=== PATIENT | female | born 1940 | race Caucasian/White ===

== ENCOUNTER 2021-08-13 10:03 | Outpatient (CLI) | payer MEDICARE, OTHER, SELFPAY ==
--- NOTE | 2021-08-13 10:47 | XR_ITS ---
WS: [id number] SCREENING DEXA SCAN [place] [facility] CLINICAL INFORMATION: ASYMPTOMATIC MENOPAUSAL STATE COMPARISON: FINDINGS: The L1-L4 bone mineral density measures 1.539 g/cm2. This corresponds to a T score score of 3.0 and Z score of 4.0. LEFT forearm bone mineral density measures 0.905. This corresponds to a T score of 0.3 and Z score of 2.9. XR/XR DEXA axial skeleton* [id number] IMPRESSION: Normal bone mineralization.
== END 2021-08-13 10:04 | disposition home or self-care (01) ==
LOC: RAD 10:04
PROVIDERS: Visit Provider Nurse Practitioner Family
DX: Z78.0 Asymptomatic menopausal state (principal)
CPT/HCPCS: 77080

== ENCOUNTER 2021-10-25 19:40 | Emergency (ER) | payer MEDICARE, OTHER, SELFPAY ==
[2021-10-25 20:12] VITALS: BP 199/100; PULSE 76; RESP 16; TEMP 37.2; O2SAT 95; BMI 35.4
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
[2021-10-25 22:52] LABS: Hematocrit 40.3 % (37.0-47.0); Mean Corpuscular HGB Conc 32.3 g/dL (30.0-36.0); Mean Corpuscular Hemoglobin 30.4 pg (28.0-34.0); Mean Corpuscular Volume 94.2 fl (81-99); Mean Platelet Volume 10.5 fL (7.4-10.4); Platelet Count 171 10^3/cmm (130-400); Red Blood Count 4.28 10^6/uL (4.1-5.3); Red Cell Distribution Width 14.5 % (12.1-15.1)
[2021-10-25 23:10] VITALS: BP 145/78; PULSE 85; RESP 18; O2SAT 98
[2021-10-25 23:14] LABS: Alanine Aminotransferase 10 U/L (0-33); Alkaline Phosphatase 70 IU/L (35-105); Anion Gap 14.6 (5-19); Aspartate Amino Transferase 14 U/L (0-32); Blood Urea Nitrogen 14 mg/dL (8-23); Calcium 9.1 mg/dL (8.5-10.5); Carbon Dioxide 27 mmol/L (22-29); Chloride 101 mmol/L (98-107); Globulin 2.5 g/dL (1.3-4.6); Glucose 84 mg/dL (65-115); Osmolality Calculated 288 mOsm/kg (285-295); Potassium 3.6 mmol/L (3.5-5.1); Sodium 139 mmol/L (136-145); Total Bilirubin 0.4 mg/dL (0.15-1.2); Total Protein 6.5 g/dL (6.6-8.7)
[2021-10-25 23:19] LABS: Slide Review Slide Review Perform
[2021-10-25 23:22] LABS: White Blood Count 49.1 10^3/uL (4.0-10.0)
[2021-10-25 23:26] LABS: Absolute Eosinophils 0.4 10^3/cmm (0.0-0.7); Absolute Neutrophil 4.4 10^3/cmm (1.4-6.5); Absolute Segmented Neutrophil 4.4 10/cmm (1.6-7.1); Eosinophils 1 %; Lymphocytes 88 %; Lymphocytes Absolute 43.2 10^3/cmm (1.2-3.4); Pathology Refferal Yes; Platelet Estimate Normal (Normal); Segmented Neutrophils 9 %; Smudge Cells 1+; Total Cells Counted 100 (0-100)
== END 2021-10-25 23:11 | disposition home or self-care (01) ==
PROVIDERS: Emergency Provider Nurse Practitioner Family
DX: L27.1 Localized skin eruption due to drugs and medicaments taken internally (principal); C85.90 Non-Hodgkin lymphoma, unspecified, unspecified site; Z79.899 Other long term (current) drug therapy
CPT/HCPCS: 80053; 80503; 85007; 85025; 87040; 87070; 87075; 87205; 99282

== ENCOUNTER → 2021-10-30 13:06 | Outpatient (BNVA) | payer MEDICARE, OTHER, SELFPAY | PROVIDERS: Visit Provider Emergency Medicine | DX: I96 Gangrene, not elsewhere classified (principal); L97.521 Non-pressure chronic ulcer of other part of left foot limited to breakdown of skin; L97.511 Non-pressure chronic ulcer of other part of right foot limited to breakdown of skin | CPT/HCPCS: 11042; 99203; 99213 ==

== ENCOUNTER → 2021-11-06 10:52 | Outpatient (BNVA) | payer MEDICARE, OTHER, SELFPAY | PROVIDERS: Visit Provider Emergency Medicine | DX: I96 Gangrene, not elsewhere classified (principal); L97.421 Non-pressure chronic ulcer of left heel and midfoot limited to breakdown of skin; L97.511 Non-pressure chronic ulcer of other part of right foot limited to breakdown of skin | CPT/HCPCS: 11042 ==

== ENCOUNTER → 2021-11-13 13:00 | Outpatient (BNVA) | payer MEDICARE, OTHER, SELFPAY | PROVIDERS: Visit Provider Nurse Practitioner Family | DX: Z09 Encounter for follow-up examination after completed treatment for conditions other than malignant neoplasm (principal) | CPT/HCPCS: 99212; 99213 ==

== ENCOUNTER 2022-01-31 09:58 | Outpatient (CLI) | payer MEDICARE, OTHER, SELFPAY ==
--- NOTE | 2022-01-31 10:10 | USCV_ITS ---
Colette Almazan Age: 81 Gender: F : 1940 Exam Date: 01/31/2022 10:26 Ordering Phys: Brielle Dolan DO Technologist: Corby Kapoor Exam Location: [facility] – [place] Indication: HISTORY: PROCEDURES: Bilateral duplex Venous Insufficiency study of the Deep and Superficial systems was carried out according to normal protocol with the patient in supine positon for deep system and dependent position for the superficial system. FINDINGS: All deep veins demonstrated compressibility without evidence of intraluminal thrombus or increased echogenicity. Spectral analysis of Doppler signals demonstrates normal response to compression maneuvers indicating patency without obstruction. Reflux determinations were made with the patient in the dependent position, the weight being on the contralateral leg. Vein measurements and reflux times are listed below were applicable. No notable reflux was seen at this time. CONCLUSIONS No evidence of DVT in the above-mentioned identifiable veins. No significant reflux, either in the deep or superficial veins mentioned above Normal venous dimensions bilaterally Dr Karlee Valle MD [facility] (Electronically Signed) Final Date: 03 February 2022 17:01 S
== END 2022-01-31 09:59 | disposition home or self-care (01) ==
LOC: RAD 09:59
PROVIDERS: PCP Registered Nurse; Visit Provider Emergency Medicine
DX: M79.604 Pain in right leg (principal); M79.605 Pain in left leg; L98.8 Other specified disorders of the skin and subcutaneous tissue
CPT/HCPCS: 93970

== ENCOUNTER 2022-11-19 13:06 | Outpatient (CLI) | payer MEDICARE, OTHER, SELFPAY ==
--- NOTE | 2022-11-19 13:11 | CT_ITS ---
WS: [id number] CT NECK TECHNIQUE: Contrast-enhanced CT of the neck with coronal and sagittal reformatted images. CLINICAL INFORMATION: CHRONIC LYMPHOCYTIC LEUKEMIA COMPARISON: None. DLP: 207.[address] scans at [facility] use at least one of these dose optimization techniques: automated e xposure control; mA and/or kV adjustment per patient size (includes targeted exams where dose is matc hed to clinical indication); or iterative reconstruction. FINDINGS: Paranasal sinuses and mastoid air cells are well aerated. Normal submandibular glands. Normal parotid glands. Diffuse enhancing lobulated soft tissue mass with enhancement involving the tongue base ecce ntric to the LEFT. This extends into the LEFT vallecula. Findings suspicious for tongue base neoplasm .. Recommend further evaluation with direct visualization. Normal piriform sinuses. Normal glottis. Subglottic airway is patent. Bilateral cervical lymphadenopa thy involving both cervical chains LEFT greater than RIGHT. This extends into the posterior triangle. Largest lymph nodes measure approximately 12 mm LEFT level 2 and level 3. Prominent lymph nodes exte nd to the supra clavicular regions bilaterally. Carotid bulb calcification. Retropharyngeal course to the RIGHT greater than LEFT cervical ICAs. RIGH T proximal ICA stenosis appears at least moderate. This can be further evaluated with ultrasound or C TA neck. Dental artifact degrades some images. Moderate spondylitic changes cervical spine. CT/CT neck w con* [id number] IMPRESSION: 1. Asymmetric lobulated masslike soft tissue thickening at the tongue base asy mmetric LEFT. Filling of the LEFT vallecula. Recommend direct visualization and biopsy for further evaluation. Findings suspicious for tongue base neoplasm. 2. Bilateral mild diffuse cervical lymphadenopathy involving all lymph node ch ains extending into the posterior triangle, supraclavicular, and infraclavicula r regions bilaterally. 3. Carotid bulb calcification with stenosis. Recommend CTA neck.
--- NOTE | 2022-11-19 13:11 | CT_ITS ---
WS: [id number] CT CHEST, ABDOMEN, AND PELVIS TECHNIQUE: Contrast-enhanced CT of the chest, abdomen, and pelvis with coronal and sagittal reformatt ed images. CLINICAL INFORMATION: CHRONIC LYMPHOCYTIC LEUKEMIA, SPLENOMEGALY COMPARISON: No prior comparisons or additional history. DLP: 1102.[address] scans at [facility] use at least one of these dose optimization techniques: automated e xposure control; mA and/or kV adjustment per patient size (includes targeted exams where dose is matc hed to clinical indication); or iterative reconstruction. CT CHEST: Lungs are well aerated. No acute pulmonary infiltrates. No focal pneumonia or pleural fluid. No suspi cious pulmonary parenchymal abnormalities. Large esophageal hiatal hernia with intrathoracic stomach in the LEFT lower lobe. Normal caliber thoracic aorta. Prominent bilateral axillary lymph nodes. Prominent lower neck and sub pectoral lymph nodes. Prominent anterior mediastinal and peribronchial lymph nodes. Mild RIGHT hilar lymphadenopathy. Coronary calcification. Prominent subcarinal lymph node. Moderate spondylitic change s thoracic spine. Mild thoracic curve with moderate thoracic kyphosis. Cardiomegaly. CT ABDOMEN AND PELVIS: Hepatomegaly. Portal vein and splenic vein are patent. Mild splenomegaly. Splenic granulomas. Large e sophageal hiatal hernia with intrathoracic stomach. Gallbladder is contracted. Tiny fat-containing um bilical hernia. Small splenule. Normal pancreatic parenchymal enhancement. Induration with enlarged l ymph nodes in the central mesentery (fernandez mesentery) compatible with history of CLL. Slightly enlarg ed LEFT periaortic and aortocaval lymph nodes. Prominent lymph nodes at the rosalie hepatis. Bilateral THAs significantly degrades images in the pelvis. Sigmoid diverticulosis. No evidence of ac havasupai diverticulitis. Transverse colon and RIGHT colon constipation. Fat-containing umbilical hernia. N ormal caliber abdominal aorta. Mild aortic calcification. Adrenal glands are normal. No hydronephrosi s in either kidney. Small LEFT renal cysts. Mild lymphadenopathy along both iliac chains. Pelvic sidewall lymphadenopathy RIGHT greater than LEFT . RIGHT greater than LEFT inguinal lymphadenopathy. Fat-containing LEFT inguinal hernia. Advanced sp ondylitic changes lumbar spine. CT/CT chest abdpel w/*[id number] IMPRESSION: 1. Fernandez central mesentery with associated prominent lymph nodes compatible wi th history of CLL. 2. Slightly enlarged LEFT periaortic lymph node measuring 14 mm. Prominent aor tocaval and rosalie hepatis lymph nodes. 3. Images in the pelvis are degraded due to bilateral THAs. Enlarged bilateral iliac chain lymph nodes. Bilateral pelvic sidewall lymphadenopathy. 4. RIGHT greater than LEFT inguinal lymphadenopathy. 5. Large esophageal hiatal hernia with intrathoracic stomach in the LEFT lower lobe. 6. Mild RIGHT hilar lymphadenopathy with prominent anterior mediastinal and pe ribronchial lymph nodes. 7. Mild bilateral axillary lymphadenopathy.
[2022-11-19 13:40] LABS: Blood Urea Nitrogen 17 mg/dL (8-23)
[2022-11-19] MEDS: iohexol 350 mg/mL 500 mL Btl (per mL) IV ×2 (13:48→13:53)
== END 2022-11-19 13:07 | disposition home or self-care (01) ==
PROVIDERS: Radiology Neuroradiology; PCP Registered Nurse; Visit Provider Internal Medicine Hematology & Oncology
DX: C91.10 Chronic lymphocytic leukemia of B-cell type not having achieved remission (principal); R16.1 Splenomegaly, not elsewhere classified; K14.8 Other diseases of tongue; R59.0 Localized enlarged lymph nodes; I65.21 Occlusion and stenosis of right carotid artery; K44.9 Diaphragmatic hernia without obstruction or gangrene
CPT/HCPCS: 70491; 71260; 74177; 82565; 84520; Q9967

== ENCOUNTER → 2023-01-14 14:20 | Outpatient (BNVA) | payer MEDICARE, OTHER, SELFPAY | PROVIDERS: PCP Registered Nurse; Visit Provider Podiatrist Foot & Ankle Surgery | DX: L81.9 Disorder of pigmentation, unspecified (principal); L60.3 Nail dystrophy | CPT/HCPCS: 99203 ==

== ENCOUNTER → 2023-02-13 14:03 | Outpatient (BNVA) | payer MEDICARE, OTHER, SELFPAY | PROVIDERS: PCP Family Medicine; Visit Provider Dermatology | DX: L60.9 Nail disorder, unspecified (principal); D23.62 Other benign neoplasm of skin of left upper limb, including shoulder; D23.71 Other benign neoplasm of skin of right lower limb, including hip; L72.0 Epidermal cyst; D69.2 Other nonthrombocytopenic purpura; L57.8 Other skin changes due to chronic exposure to nonionizing radiation | CPT/HCPCS: 11102; 99203 ==

== ENCOUNTER → 2023-07-10 14:52 | Outpatient (BNVA) | payer MEDICARE, OTHER, SELFPAY | PROVIDERS: PCP Family Medicine; Visit Provider Dermatology | DX: Z86.007 Personal history of in-situ neoplasm of skin (principal); Z85.820 Personal history of malignant melanoma of skin; B35.3 Tinea pedis; S90.111A Contusion of right great toe without damage to nail, initial encounter; X58.XXXA Exposure to other specified factors, initial encounter | CPT/HCPCS: 99214 ==

== ENCOUNTER 2023-10-13 12:29 | Outpatient (CLI) | payer MEDICARE, OTHER, SELFPAY ==
[2023-10-13 13:11] LABS: Cholesterol 126 mg/dL (0-200); HDL Cholesterol 60 mg/dL (60-100); LDL Cholesterol Calculated 42 mg/dL (50-129); Triglycerides 121 mg/dL (0-150)
== END 2023-10-13 12:30 | disposition home or self-care (01) ==
LOC: LAB 12:34
PROVIDERS: PCP Family Medicine; Visit Provider Family Medicine
DX: I50.21 Acute systolic (congestive) heart failure (principal)
CPT/HCPCS: 36415; 80061

== ENCOUNTER → 2024-02-22 12:13 | Outpatient (BNVA) | payer MEDICARE, OTHER, SELFPAY | PROVIDERS: PCP Family Medicine; Visit Provider Nurse Practitioner | DX: R39.9 Unspecified symptoms and signs involving the genitourinary system (principal) | CPT/HCPCS: 81000 ==

== ENCOUNTER → 2025-03-21 09:13 | Outpatient (BNVA) | payer MEDICARE, OTHER, SELFPAY | PROVIDERS: PCP Family Medicine; Visit Provider Dermatology | DX: L72.0 Epidermal cyst (principal); L57.8 Other skin changes due to chronic exposure to nonionizing radiation; D69.2 Other nonthrombocytopenic purpura; B35.1 Tinea unguium; D23.62 Other benign neoplasm of skin of left upper limb, including shoulder; D23.71 Other benign neoplasm of skin of right lower limb, including hip; L81.4 Other melanin hyperpigmentation; D18.01 Hemangioma of skin and subcutaneous tissue; Z85.820 Personal history of malignant melanoma of skin; Z08 Encounter for follow-up examination after completed treatment for malignant neoplasm; Z86.007 Personal history of in-situ neoplasm of skin; D48.5 Neoplasm of uncertain behavior of skin | CPT/HCPCS: 11102; 99213 ==